=== PATIENT | male | born 1945 | race Caucasian/White ===

== ENCOUNTER 2024-11-11 07:37 | Outpatient (CLI) | payer MEDICARE, SELFPAY ==
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
[2024-11-11 08:03] LABS: Hematocrit 34.8 % (42.0-52.0); Hemoglobin 11.5 g/dL (14.1-18.0); Immature Granulocytes % 0.3 %; Mean Corpuscular HGB Conc 33.0 g/dL (31.8-35.4); Mean Corpuscular Hemoglobin 28.2 pg (27.0-31.2); Mean Corpuscular Volume 85.3 fl (80-94); Nucleated Red Blood Cells % 0 %; Platelet Count 234 K/mm3 (142-424); Red Blood Count 4.08 M/mm3 (4.60-6.20); Red Cell Distribution Width-SD 46.8 fL; White Blood Count 6.7 K/mm3 (4.8-10.8)
[2024-11-11 08:34] LABS: Alanine Aminotransferase 8 U/L (12-78); Albumin Level 3.8 g/dl (3.5-5.0); Albumin/Globulin Ratio 1.2 (1.1-1.8); Alkaline Phosphatase 70 U/L (38-126); Anion Gap 15.3 mEq/L (5-15); Aspartate Amino Transferase 21 U/L (17-59); Bilirubin,Total 0.5 mg/dl (0.2-1.3); Blood Urea Nitrogen 17 mg/dl (9-20); Calcium 9.1 mg/dl (8.4-10.2); Carbon Dioxide 28 mmol/L (22.0-30.0); Chloride 99 mmol/L (98-107); Cholesterol 177 mg/dl (140-200); Creatinine,Serum 1.00 mg/dl (0.66-1.25); Estimated Glomerular Filt Rate 72 ml/min (>60); GFR (African American) 87 ML/MIN (>60); Globulin 3.2 g/dL (1.3-3.2); Glucose 87 mg/dl (74-100); HDL Cholesterol 26 mg/dl (40-60); Potassium 4.3 mmoL/L (3.5-5.1); Sodium 138 mmol/L (136-145); Total Protein,Serum 7.0 g/dl (6.3-8.2); Triglycerides 127 mg/dl (30-150)
[2024-11-11 08:52] LABS: Free T4 (Free Thyroxine) 0.95 ng/dl (0.78-2.19)
[2024-11-11 09:04] LABS: Thyroid Stimulating Hormone 6.26 uIU/mL (0.465-4.68)
[2024-11-11 10:14] LABS: Hepatitis C Ab Qual. W/ RFX NEGATIVE (Negative)
[2024-11-11 10:51] LABS: Hemoglobin A1C 6.3 % (4.0-6.0)
[2024-11-11 12:14] LABS: Iron 52 ug/dL (49-181)
[2024-11-11 12:24] LABS: Total Iron Binding Capacity 212 ug/dL (261-462); Valproic Acid, (Depakene) 21.2 ug/ml (50-100)
[2024-11-11 12:51] LABS: Ferritin 86.6 ng/ml (17.9-464)
== END 2024-11-11 23:59 | disposition home or self-care (01) ==
PROVIDERS: PCP Nurse Practitioner Family; Visit Provider Nurse Practitioner Family
DX: D64.9 Anemia, unspecified (principal); F03.90 Unspecified dementia, unspecified severity, without behavioral disturbance, psychotic disturbance, mood disturbance, and anxiety; I10 Essential (primary) hypertension; Z13.1 Encounter for screening for diabetes mellitus; Z13.220 Encounter for screening for lipoid disorders; Z13.29 Encounter for screening for other suspected endocrine disorder; Z11.4 Encounter for screening for human immunodeficiency virus [HIV]; Z11.59 Encounter for screening for other viral diseases
CPT/HCPCS: 36415; 80053; 80061; 80074; 80164; 82728; 83036; 83540; 83550; 84439; 84443; 85025; 87389

== ENCOUNTER 2024-12-30 08:23 | Outpatient (CLI) | payer MEDICARE, SELFPAY ==
--- OUTSIDE RECORDS SUMMARY | 2024-12-30 08:48 | XMS_ITS | Clinical Summary ---
Author Organization [facility] Address [address] [place] [address] Phone Care Team Providers Care Oyster Worker Name Role Phone Provider, Not In Epic [...] MEDICARE [place] PART A AND B MEDICARE [place] PART A AND B [employer] [place] MDR Care Teams Oyster Worker Relationship Specialty Start Date End Date Provider, Not In [facility] PCP - General 01/06/13
[2024-12-30 09:52] LABS: Free T4 (Free Thyroxine) 1.29 ng/dl (0.78-2.19)
[2024-12-30 10:05] LABS: Thyroid Stimulating Hormone 2.24 uIU/mL (0.465-4.68)
== END 2024-12-30 23:59 | disposition home or self-care (01) ==
PROVIDERS: PCP Family Medicine; Visit Provider Family Medicine
DX: E03.8 Other specified hypothyroidism (principal)
CPT/HCPCS: 36415; 84439; 84443

== ENCOUNTER 2025-02-26 09:03 | Outpatient (CLI) | payer MEDICARE, SELFPAY ==
[2025-02-26 10:18] LABS: Hemoglobin A1C 5.4 % (4.0-6.0)
== END 2025-02-26 23:59 | disposition home or self-care (01) ==
PROVIDERS: PCP Family Medicine; Visit Provider Family Medicine
DX: E11.9 Type 2 diabetes mellitus without complications (principal)
CPT/HCPCS: 36415; 83036

== ENCOUNTER 2025-03-31 07:40 | Outpatient (CLI) | payer MEDICARE, SELFPAY ==
--- OUTSIDE RECORDS SUMMARY | 2025-03-31 07:42 | XMS_ITS | Clinical Summary ---
Author Organization [facility] Address [address] [facility] [address] [facility] [place] [address] Phone Care Team Providers Care Promotion Writer Name Role Phone Provider, Not In Epic [...] on file Sexual Orientation Not on file Last Filed Vital Signs Vital Sign Reading [...] 75+ series) 2019 COVID-19 Vaccine ( - 2024-2 6 season) 2024 Influenza Vaccine (#1) 2024 Hepatitis B Vaccine Aged Out No longe r eligible based on patient's age to complete this topic Meningococcal B Vaccine Aged Out No l onger eligible based on patient's age to complete this topic Insurance MEDICARE [place] PART A AND B MEDICARE [place] PART A AND B [employer] [place] MDR Care Teams Promotion Writer Relationship Specialty Start Date End Date Provider, Not In [facility] PCP - General 01/06/13
[2025-03-31 08:29] LABS: Free T4 (Free Thyroxine) 1.29 ng/dl (0.78-2.19)
[2025-03-31 08:43] LABS: Thyroid Stimulating Hormone 2.09 uIU/mL (0.465-4.68)
[2025-03-31 09:53] LABS: Valproic Acid, (Depakene) < 10.0 ug/ml (50-100)
== END 2025-03-31 23:59 | disposition home or self-care (01) ==
LOC: LAB.DROPOF 07:40
PROVIDERS: PCP Family Medicine; Visit Provider Nurse Practitioner Family
DX: E03.9 Hypothyroidism, unspecified (principal)
CPT/HCPCS: 36415; 80164; 84439; 84443